=== PATIENT | male | born 2000 | race Caucasian/White ===

== ENCOUNTER 2024-03-12 22:31 | Emergency (ER) | payer SELFPAY ==
[~2024-03-12] VITALS: Ht 175.3 cm; Wt 73.0 kg
[2024-03-12 23:13] VITALS: TEMP 98.6
[2024-03-12 23:37] LABS: BASOPHILS % 0.8 % (0.0-2.0); EOSINOPHILS % 0.9 % (0.0-5.0); HEMATOCRIT. 36.1 % (42.0-52.0); LYMPHOCYTES % 24.6 % (20.0-50.0); MEAN CORPUSCULAR HEMOGLOBIN 29.9 pg (28.0-32.0); MEAN CORPUSCULAR HGB CONC 33.3 g/dL (31.0-37.0); MEAN CORPUSCULAR VOLUME 89.7 fL (80.0-94.0); MEAN PLATELET VOLUME 7.4 fl (7.4-10.4); MONOCYTES % 7.8 % (2.0-8.0); NEUTROPHILS % 65.9 % (40.0-76.0); PLATELET 290 x1000/uL (130-400); RED BLOOD CELL COUNT 4.02 mill/uL (4.7-6.1); RED CELL DISTRIBUTION WIDTH 13.7 % (11.6-14.6); WHITE BLOOD COUNT 6.3 x1000/uL (4.5-11.0)
[2024-03-12 23:42] LABS: CHLORIDE 104 mEq/L (98-107); POTASSIUM 3.4 mEq/L (3.5-5.1); SODIUM 141 mEq/L (136-145)
[2024-03-12 23:43] VITALS: O2SAT 100
[2024-03-12 23:43] LABS: CALCIUM 9.3 mg/dL (8.7-10.4); CARBON DIOXIDE 30 mEq/L (21-32)
[2024-03-12] MEDS: SODIUM CHLORIDE 0.9% 1,000 ML IV ONE (23:47)
[2024-03-12] MEDS: LORAZEPAM 1MG TABLET PO ONE (23:47)
[2024-03-12 23:48] LABS: CREATININE 0.9 mg/dL (0.6-1.3); GLUCOSE 106 mg/dL (70-105); UREA NITROGEN BLOOD 10 mg/dL (9-23)
[2024-03-12 23:49] LABS: AMMONIA < 17 uMol/L (<32)
[2024-03-12 23:50] LABS: ACETAMINOPHEN < 2 ug/mL (10-30); CREATINE KINASE 261 IU/L (46-171)
[2024-03-13 00:01] LABS: ETHANOL BLOOD < 10 mg/dL (<10)
[2024-03-13] MEDS: POTASSIUM CHLORIDE 20MEQ/PACKET PO NR (00:20)
[2024-03-13 02:20] VITALS: BP 109/58; PULSE 67; RESP 11
== END 2024-03-13 02:23 | disposition home or self-care (01) ==
LOC: ER 22:31
DX: F15.10 Other stimulant abuse, uncomplicated (principal); F19.10 Other psychoactive substance abuse, uncomplicated; F12.10 Cannabis abuse, uncomplicated; F17.210 Nicotine dependence, cigarettes, uncomplicated
CPT/HCPCS: 80048; 80307; 80329; 80320; 82140; 82550; 85025; 36415; 96360; 99291; J7030; G0480

== ENCOUNTER 2024-05-31 20:50 | Emergency (ER) | payer SELFPAY ==
[~2024-05-31] VITALS: Ht 172.7 cm; Wt 77.0 kg
[2024-05-31 21:01] VITALS: O2SAT 97
[2024-05-31 21:43] LABS: BASOPHILS % 0.5 % (0.0-2.0); EOSINOPHILS % 0.5 % (0.0-5.0); HEMATOCRIT. 41.3 % (42.0-52.0); LYMPHOCYTES % 12.1 % (20.0-50.0); MEAN CORPUSCULAR HEMOGLOBIN 30.5 pg (28.0-32.0); MEAN CORPUSCULAR HGB CONC 33.9 g/dL (31.0-37.0); MEAN CORPUSCULAR VOLUME 89.8 fL (80.0-94.0); MEAN PLATELET VOLUME 7.9 fl (7.4-10.4); MONOCYTES % 6.4 % (2.0-8.0); NEUTROPHILS % 80.5 % (40.0-76.0); PLATELET 287 x1000/uL (130-400); RED CELL DISTRIBUTION WIDTH 13.1 % (11.6-14.6); WHITE BLOOD COUNT 9.9 x1000/uL (4.5-11.0)
[2024-05-31 21:55] LABS: CARBON DIOXIDE 27 mEq/L (21-32); CHLORIDE 108 mEq/L (98-107); POTASSIUM 3.2 mEq/L (3.5-5.1); SODIUM 142 mEq/L (136-145)
[2024-05-31 21:56] LABS: CALCIUM 9.6 mg/dL (8.7-10.4)
[2024-05-31 22:01] LABS: GLUCOSE 96 mg/dL (70-105); UREA NITROGEN BLOOD 10 mg/dL (9-23)
[2024-05-31 22:02] LABS: ETHANOL BLOOD < 10 mg/dL (<10)
[2024-05-31] MEDS: POTASSIUM CHLORIDE 20MEQ TABLET SR PO ONE (22:16)
[2024-05-31] MEDS: DIPHENHYDRAMINE 50MG/ML VIAL IM STA (22:16)
[2024-05-31] MEDS: HALOPERIDOL LACTATE 5MG/ML VIAL IM STA (22:16)
[2024-05-31] MEDS: LORAZEPAM 2MG/ML INJ IM STA (22:16)
[2024-05-31] MEDS: SODIUM CHLORIDE 0.9% 1,000 ML IV ONE (23:47)
[2024-06-01 04:01] LABS: ALANINE AMINOTRANSFERASE 15 IU/L (10-49); ALBUMIN 4.6 g/dL (3.2-4.8); ASPARTATE AMINOTRANSFERASE 24 IU/L (<34); BILIRUBIN DIRECT 0.3 mg/dL (<=3.0); BILIRUBIN TOTAL 0.8 mg/dL (0.1-1.0); PROTEIN TOTAL 7.3 g/dL (6.0-8.3)
[2024-06-01 04:16] LABS: CLARITY URINE CLEAR (CLEAR); COLOR URINE YELLOW (YELLOW); GLUCOSE URINE NEGATIVE (NEGATIVE); KETONES URINE 1+ (NEGATIVE); LEUKOCYTE ESTERASE URINE NEGATIVE (NEGATIVE); NITRITE URINE NEGATIVE (NEGATIVE); OCCULT BLOOD URINE NEGATIVE (NEGATIVE); PH URINE 5.5 (4.5-8.0); PROTEIN URINE 1+ (NEGATIVE); SPECIFIC GRAVITY URINE 1.023 (1.005-1.030); UROBILINOGEN URINE 0.2 E.U./dL (0.2-1.0)
[2024-06-01 04:18] LABS: *AMPHETAMINES SCREEN URINE PRESUMPTIVE POSITIVE (NEGATIVE); *BARBITURATES SCREEN URINE NEGATIVE (NEGATIVE); *BENZODIAZEPINES SCREEN URINE NEGATIVE (NEGATIVE); *COCAINE SCREEN URINE NEGATIVE (NEGATIVE); CANNABINOID URINE SCREEN PRESUMPTIVE POSITIVE (NEGATIVE); ECSTASY MDMA SCREEN URINE CONF.TEST INDICATED (NEGATIVE); METHADONE URINE SCREEN NEGATIVE (NEGATIVE); OPIATES URINE SCREEN NEGATIVE (NEGATIVE); PHENCYCLIDINE URINE SCREEN NEGATIVE (NEGATIVE)
[2024-06-01 05:06] LABS: BACTERIA URINE NONE SEEN; RBC URINE 0-2 /hpf (0-2); SQUAMOUS EPITHELIAL CELL URINE RARE /lpf (RARE/1+); WBC URINE 0-2 /hpf (0-2)
[2024-06-01 07:03] VITALS: TEMP 36.89184
[2024-06-01 11:35] VITALS: BP 135/81; PULSE 72; RESP 18; O2SAT 98
== END 2024-06-01 12:07 | disposition home or self-care (01) ==
LOC: ER 20:50
DX: R41.0 Disorientation, unspecified (principal); F12.10 Cannabis abuse, uncomplicated; F15.10 Other stimulant abuse, uncomplicated; F19.10 Other psychoactive substance abuse, uncomplicated; Z20.822 Contact with and (suspected) exposure to COVID-19
CPT/HCPCS: 80048; 80320; 85025; 36415 ×2; 96360; 96372; 99285; 80076; 80305; 81003; 80307; 80329; 87426; J1200; J1630; J2060; J7030; G0480

== ENCOUNTER 2024-06-10 15:05 | Emergency (ER) | payer SELFPAY ==
[~2024-06-10] VITALS: Ht 172.7 cm; Wt 74.0 kg
[2024-06-10 15:05] VITALS: BP 138/86; PULSE 118; RESP 16; TEMP 98.6; O2SAT 97
[2024-06-10 15:35] LABS: BASOPHILS % 0.8 % (0.0-2.0); EOSINOPHILS % 0.9 % (0.0-5.0); HEMOGLOBIN. 13.3 g/dL (14.0-18.0); LYMPHOCYTES % 25.6 % (20.0-50.0); MEAN CORPUSCULAR HEMOGLOBIN 29.9 pg (28.0-32.0); MEAN CORPUSCULAR HGB CONC 33.3 g/dL (31.0-37.0); MEAN CORPUSCULAR VOLUME 89.6 fL (80.0-94.0); MEAN PLATELET VOLUME 7.6 fl (7.4-10.4); MONOCYTES % 6.6 % (2.0-8.0); NEUTROPHILS % 66.1 % (40.0-76.0); PLATELET 298 x1000/uL (130-400); RED BLOOD CELL COUNT 4.47 mill/uL (4.7-6.1); RED CELL DISTRIBUTION WIDTH 13.1 % (11.6-14.6); WHITE BLOOD COUNT 8.3 x1000/uL (4.5-11.0)
[2024-06-10 15:41] LABS: CHLORIDE 108 mEq/L (98-107); POTASSIUM 3.4 mEq/L (3.5-5.1); SODIUM 140 mEq/L (136-145)
[2024-06-10 15:42] LABS: CALCIUM 9.4 mg/dL (8.7-10.4); CARBON DIOXIDE 28 mEq/L (21-32)
[2024-06-10 15:47] LABS: CREATININE 1.1 mg/dL (0.6-1.3); GLUCOSE 115 mg/dL (70-105); UREA NITROGEN BLOOD 19 mg/dL (9-23)
[2024-06-10 15:49] LABS: CREATINE KINASE 366 IU/L (46-171); ETHANOL BLOOD < 10 mg/dL (<10)
[2024-06-10 21:12] LABS: *AMPHETAMINES SCREEN URINE PRESUMPTIVE POSITIVE (NEGATIVE); *BARBITURATES SCREEN URINE NEGATIVE (NEGATIVE); *BENZODIAZEPINES SCREEN URINE NEGATIVE (NEGATIVE); *COCAINE SCREEN URINE NEGATIVE (NEGATIVE)
[2024-06-10 21:13] LABS: CANNABINOID URINE SCREEN PRESUMPTIVE POSITIVE (NEGATIVE); ECSTASY MDMA SCREEN URINE CONF.TEST INDICATED (NEGATIVE); METHADONE URINE SCREEN NEGATIVE (NEGATIVE); OPIATES URINE SCREEN NEGATIVE (NEGATIVE); PHENCYCLIDINE URINE SCREEN NEGATIVE (NEGATIVE)
[2024-06-11] MEDS: LORAZEPAM 2MG/ML INJ IM STA (00:03)
[2024-06-11] MEDS: DIPHENHYDRAMINE 50MG/ML VIAL IM STA (00:04)
[2024-06-11] MEDS: HALOPERIDOL LACTATE 5MG/ML VIAL IM STA (00:04)
== END 2024-06-11 02:02 | disposition home or self-care (01) ==
LOC: ER 15:05
DX: F15.10 Other stimulant abuse, uncomplicated (principal); F12.10 Cannabis abuse, uncomplicated
CPT/HCPCS: 36415; 80048; 80305; 80320; 82550; 85025; 99283; G0480

== ENCOUNTER 2024-06-17 09:54 | Emergency (ER) | payer MEDICAID ==
[~2024-06-17] VITALS: Ht 172.7 cm; Wt 82.0 kg
[2024-06-17 10:02] VITALS: TEMP 98.1; O2SAT 97
[2024-06-17 10:35] LABS: BASOPHILS % 0.5 % (0.0-2.0); EOSINOPHILS % 0.5 % (0.0-5.0); HEMATOCRIT. 44.5 % (42.0-52.0); HEMOGLOBIN. 14.7 g/dL (14.0-18.0); LYMPHOCYTES % 22.8 % (20.0-50.0); MEAN CORPUSCULAR HEMOGLOBIN 29.8 pg (28.0-32.0); MEAN CORPUSCULAR VOLUME 90.2 fL (80.0-94.0); MEAN PLATELET VOLUME 8.3 fl (7.4-10.4); MONOCYTES % 6.5 % (2.0-8.0); NEUTROPHILS % 69.7 % (40.0-76.0); PLATELET 309 x1000/uL (130-400); RED BLOOD CELL COUNT 4.94 mill/uL (4.7-6.1); RED CELL DISTRIBUTION WIDTH 13.6 % (11.6-14.6); WHITE BLOOD COUNT 9.6 x1000/uL (4.5-11.0)
[2024-06-17 10:44] LABS: PROTHROMBIN TIME 10.7 sec (9.6-11.0)
[2024-06-17 10:49] LABS: CARBON DIOXIDE 30 mEq/L (21-32); CHLORIDE 100 mEq/L (98-107); POTASSIUM 3.3 mEq/L (3.5-5.1); SODIUM 137 mEq/L (136-145)
[2024-06-17 10:50] LABS: CALCIUM 9.7 mg/dL (8.7-10.4)
[2024-06-17] MEDS: LORAZEPAM 1MG TABLET PO ONE (10:53)
[2024-06-17 10:54] LABS: CREATININE 0.9 mg/dL (0.6-1.3)
[2024-06-17 10:55] LABS: GLUCOSE 102 mg/dL (70-105); UREA NITROGEN BLOOD 9 mg/dL (9-23)
[2024-06-17] MEDS: SODIUM CHLORIDE 0.9% 1,000 ML IV ONE (10:59)
[2024-06-17 11:02] LABS: TROPONIN I HIGH SENSITIVITY < 4 ng/L (3.0-53)
[2024-06-17] MEDS: POTASSIUM CHLORIDE 20MEQ TABLET SR PO ONE (12:30)
[2024-06-17 13:01] LABS: TROPONIN I HIGH SENSITIVITY < 4 ng/L (3.0-53)
[2024-06-17 13:10] VITALS: BP 129/84; PULSE 76; RESP 16; O2SAT 98
== END 2024-06-17 13:30 | disposition home or self-care (01) ==
LOC: ER 10:07
DX: F15.10 Other stimulant abuse, uncomplicated (principal); F12.90 Cannabis use, unspecified, uncomplicated; E87.6 Hypokalemia; J45.909 Unspecified asthma, uncomplicated
CPT/HCPCS: 99285; 96360; 71045; 80048; 85025; 85610; 84484; 36415; 93005; J7030

== ENCOUNTER 2024-07-06 16:13 | Emergency (ER) | payer SELFPAY ==
[~2024-07-06] VITALS: Ht 170.2 cm; Wt 73.0 kg
[2024-07-06 16:25] VITALS: O2SAT 99
[2024-07-06] MEDS: ACETAMINOPHEN 500MG TABLET PO ONE (18:14)
[2024-07-06] MEDS ORDERED: ACET-2708 MT (19:47)
[2024-07-06 19:55] VITALS: BP 148/98; PULSE 87; RESP 18; TEMP 36.78072
== END 2024-07-06 19:59 | disposition home or self-care (01) ==
LOC: ER 16:13
DX: F12.90 Cannabis use, unspecified, uncomplicated (principal); F15.90 Other stimulant use, unspecified, uncomplicated; J45.909 Unspecified asthma, uncomplicated
CPT/HCPCS: 99284

== ENCOUNTER 2024-07-22 10:13 | Emergency (ER) | payer MEDICAID ==
[~2024-07-22] VITALS: Ht 172.7 cm; Wt 82.0 kg
[~2024-07-22 10:13] MED LIST: ACET-2708 MT
[2024-07-22 10:19] VITALS: O2SAT 94
[2024-07-22] MEDS: KETOROLAC 30MG/ML VIAL IM ONE (10:44)
[2024-07-22 11:19] VITALS: BP 125/77; PULSE 74; RESP 16; TEMP 37.00296; O2SAT 94
== END 2024-07-22 11:20 | disposition home or self-care (01) ==
LOC: ER 10:18
DX: R51.9 Headache, unspecified (principal); F15.10 Other stimulant abuse, uncomplicated; F12.10 Cannabis abuse, uncomplicated
CPT/HCPCS: 96372; 99283; J1885; Z7610

== ENCOUNTER 2024-11-15 19:17 | Emergency (ER) | payer SELFPAY ==
[~2024-11-15] VITALS: Ht 172.7 cm; Wt 78.0 kg
[2024-11-15 19:29] VITALS: O2SAT 97
[2024-11-15] MEDS ORDERED: BO1 TP (20:58)
[2024-11-15] MEDS: IBUPROFEN 400MG TABLET PO ONE (21:04)
[2024-11-15] MEDS: BACITRACIN ZINC OINT UDPKT TOP ONE (21:04)
[2024-11-15] MEDS: TETANUS, DIPHTHERIA, PERTUSSIS VAC/PF 0.5ML (>10YR OLD) IM ONE (21:04)
[2024-11-15 21:23] VITALS: BP 134/81; PULSE 87; RESP 16; TEMP 36.8; O2SAT 97
== END 2024-11-15 21:23 | disposition home or self-care (01) ==
LOC: ER 19:17
DX: S60.222A Contusion of left hand, initial encounter (principal); X58.XXXA Exposure to other specified factors, initial encounter; Y93.89 Activity, other specified; Y92.89 Other specified places as the place of occurrence of the external cause; Y99.8 Other external cause status
CPT/HCPCS: 73130; 90471; 90715; 99283